=== PATIENT | male | born 1955 | race Caucasian/White ===

== ENCOUNTER 2018-02-12 08:07 | Day surgery (SDC) | payer OTHER, SELFPAY ==
[2018-02-12] VITALS (12 sets, daily range): BP systolic 89–137; BP diastolic 52–80; PULSE 58–77; RESP 13–21; TEMP 35.8–36.6; O2SAT 95–100
--- NOTE | 2018-02-12 06:41 | PDOC.DSDIS_ITS ---
Discharge Plan Disposition Patient Disposition: HOME Condition: Good Discharge Details Reason For Visit: Cholecystectomy Attending Provider: Sahye King Primary Care Provider: Татьяна Ryder Home Meds and New Rx's Prescriptions: Continue acetaminophen [Tylenol Extra Strength] 500 mg Tablet 1,000 mg PO PRN PRNRF: 0 Discharge Instructions Instructions: Laparoscopic Cholecystectomy (DC) Additional Instructions: Follow up: Dr. King on 02/24/18 at 9:30 Please call if you develop: fevers >101.5 Nausea or Vomiting Redness and hot to the touch around the incisions Abdominal pain that is getting worse and not transient Activity: No lifting, pulling or pushing > 20 lb x 4 weeks Diet: Regular Medications: Tylenol 650 mg every 6 hours as needed Other: May use Ice alternating with heat for pain and swelling May shower starting tomorrow Do not soak the incisions for 1 week 1. Because there will be medication in your system for the next 24 hours, you may feel a little sleepy. Your coordination will be affected. Therefore: a. Do not drive or operate dangerous equipment for 24 hours. b. Do not drink alcohol beverages for 24 hours (not even beer). c. Plan to go home and rest for the day. 2. Generally the only restriction on your activity is no lifting, pulling or pushing more then 20 lb for 4 weeks. You may feel fatigued for 2-4 weeks. 3 After you arrive home you may have a light meal and return to a normal diet as you can tolerate it without feeling sick to your stomach. 4. After surgery, you may feel pain or discomfort. Take the medications as prescribed. 5. If there are any questions regarding the findings of your procedure, please feel free to contact your doctor. 6. If you are unable to contact your doctor with a problem, contact the hospital at [phone]. 7. Continue all your regular medications unless directed otherwise. 8. You are being prescribed a Narcotic pain medication. Narcotic pain medications have an addiction potential for everyone. It is important that you take the medication as prescribed There is a limit on how many tablets we can prescribed, this has been decided by the state Please keep the medications in a secure place and do not let anyone know you have them at home If you have medication left over please discard them by crushing them in a little water and mixing in used coffee grounds or cat litter and putting in the trash. I understand the above instructions and have no questions. Signature of Patient or Responsible Adult Escort Date/Time Name of Responsible Adult Escort Signature of Nurse Date/Time Referrals: Shaye King MD [ [facility] STAFF PHYSICIAN] - 02/24/18 9:30 am Activity:: No lifting >20 lb x 2 weeks Diet:: Low fat DS: Diagnosis Discharge Diagnosis (1) Biliary dyskinesia: Status: Acute (2) S/P laparoscopic cholecystectomy: Status: Acute
[2018-02-12] MEDS: Lactated Ringers 1,000 ML 80 ML IV ×2 (08:47→13:02)
[2018-02-12] MEDS: Acetaminophen 325 MG TAB 650 MG PO (09:17)
[2018-02-12] MEDS: AMPICILLIN/SULBACTAM 3 GM in Normal Saline 100 ML IVPB (10:27)
[2018-02-12] MEDS: Bupivacaine 0.25% Pres-Free 30 ML VIAL (10:34)
[2018-02-12] MEDS: Bupivacaine LIPOSOME/PF 133 MG/10 ML VIAL IJ (10:34)
--- NOTE | 2018-02-12 11:33 | GB_PTH ---
PATIENT: SARAH MCKEON LOC: [facility] U#:[id number] AGE/SX: 62/M ROOM: RE02/12/[address]: Shaye King MD : 1955 BED: DIS: 02/12/2018 SPEC #: [id number] RECD: 02/12/18 12:59 STATUS: JG REQ #: [id number] CRISTINA: 02/12/18 11:[address]: Shaye King DEPT: Surgical Specimen RECD BY: Lisa Yeung ENTERED: 02/12/18 12:59 SP TYPE: GB OTHR DR: Татьяна Ryder Tissues: 1 - GALLBLADDER Procedures: GROSS AND MICRO LEVEL 3 Comments: [id number]
[2018-02-12] MEDS: Lidocaine 2% Multi-Dose 50 ML VIAL (11:46)
[2018-02-12] MEDS: fentaNYL 100 MCG/2 ML VIAL IVP ×4 (13:19→13:46)
--- NOTE | 2018-02-12 13:25 | ROE_ITS ---
REPORT OF OPERATIVE PROCEDURE DATE OF SURGERY February 12, 2018 PREOPERATIVE DIAGNOSIS: Biliary dyskinesia. POSTOPERATIVE DIAGNOSIS: Biliary dyskinesia. PROCEDURE PERFORMED: Laparoscopic cholecystectomy. ANESTHESIA: 1. General endotracheal anesthesia. 2. Nerve block. ANESTHESIA PROVIDER: Mikala Garnett C.R.N.A. SURGEON: Polly King M.D. OPTICAL DISPENSER: Fran Cleaning BLOOD LOSS: 50 cc SPECIMENS Gallbladder and contents. IRRIGATION FLUID 600 cc COMPLICATIONS No immediate complications. FINDINGS: Mild adhesions of omentum to the gallbladder, otherwise normal appearing gallbladder. No stones are p alpated. INDICATIONS: Mr. Olmstead is a 62-year-old gentleman who apparently was admitted at [facility] with severe acute c holecystitis, which was presumed to be from a gallstone. Ultrasound, MRCP, did not show dilation of t he ducts or any gallstones. A HIDA scan was done and showed ejection fracture of 16%. The patient was seen in the office and he does complain of postprandial pain. No clear reason for his pancreatitis w as found, so it was presumed to be a gallstone, and that may be he just had one stone that came out. The risks, benefits and complication were reviewed with him and he wished to proceed. No guarantees w ere given or implied. DESCRIPTION OF PROCEDURES: After informed consent was obtained, the patient was taken to the Operating Room, placed in a supine position; monitors were applied, and he was placed under General anesthesia and intubated. SCDs were applied prior to him being placed under general anesthesia and intubated. The patient was then turned onto left decubitus position and an Erector Spinae block was done by Rony ramirez per my request to help with postoperative pain. Once the block was done, the patient was place d back onto his back and his abdomen was clipped, prepped and draped in a sterile surgical fashion. At this point, a time-out was done, the patient's name, date of , procedure, site and type, rossy rgies to medications, DVT prophylaxes, antibiotic given and allergies to medications were all reviewe d. At this point, 0.5% Marcaine with epi mixed with 2% lidocaine was injected just above the umbilicus. A small 5-mm incision was made. The skin was grasped on either side of the incision with penetrating towel clamps and while pulling up on the skin, a 5-mm port was placed under direct visualization to t he abdomen. As soon as the tip of the port went through the fascia and peritoneum, the tip was remove d and the rest of the port was placed. The camera was inserted and the abdomen was insufflated. The o mentum and bowel under the port were inspected, no injuries were identified. Three more ports were th en placed in the same manner. One in the subxiphoid area, which was an 11-mm port and two more 5-mm p orts in the right upper quadrant. Once the abdomen was insufflated, the patient was placed in a rever sed Trendelenburg position and tilted to the left. The omentum was noted to be attached to the top do me of the gallbladder and this was dissected away with [place] dissector and cautery. Once the gallb ladder was able to be grasped, it was pulled up and pushed towards the right shoulder. The omentum w as completely dissected away and I was able to see the neck of the gallbladder. Fatty tissue was diss ected 360 degrees around the cystic duct. The cystic artery was noted to run right on top of the duct and this was also dissected 360 degrees, and then clips were placed both on the artery and the duct, one proximal and two distal and both were cut. Another larger vessel was then identified and this wa s followed along the gallbladder to make sure that it was not the right hepatic that was pulled up to the gallbladder. It split up at the top and went right into the gallbladder. It did not go back into the liver, so both branches were dissected 360 degrees and clips were placed, one proximal and two d istal and cut. The gallbladder was then dissected away from the liver bed using cautery. Once removed , it was placed into an EndoCatch bag and removed through the 11-mm port site. The liver bed was insp ected. Some bleeding was noted from the liver itself and this was cauterized. 600 cc of saline was us ed for irrigation; at the end, the effluent was clear. Once all the normal saline was suctioned out a nd the abdomen was dry, the liver bed was inspected one more time, no bleeding was noted and all clip s were noted to be in good position. The rest of the local anesthetic was then injected above the meghann er bed to help with some postoperative shoulder pain. The 12-mm port and the two right upper quadrant 5-mm ports were removed under direct visualization and no bleeding as noted from the fascia. Lastly, the air was suctioned out of the abdomen and the last 5-mm port was then removed. The skin was close d with #4-0 Vicryl. The skin was cleaned and dried, and Skin Affix was applied. Sponge, instrument and needle counts were correct at the end of the case x2. At this point, the patient was woken up, extubated and taken to back to Recovery in stable condition.
== END 2018-02-12 16:03 | disposition home or self-care (01) ==
PROVIDERS: PCP Internal Medicine; Visit Provider Surgery
PROC: 0FT44ZZ Resection of Gallbladder, Percutaneous Endoscopic Approach (ICD-10-PCS; CPT 47562; principal; 2018-02-12 10:15)
DX: K82.8 Other specified diseases of gallbladder (principal); F17.210 Nicotine dependence, cigarettes, uncomplicated
CPT/HCPCS: 47562; 76942; 88304; J0295; J1100; J2250; J2405; J3010